=== PATIENT | male | born 1995 | race Caucasian/White ===

== ENCOUNTER 2018-12-13 13:59 | Day surgery (SDC) | payer OTHER ==
[2018-12-13] VITALS (11 sets, daily range): BP systolic 103–162; BP diastolic 56–116; PULSE 75–104; TEMP 98–99
[~2018-12-13] VITALS: Ht 180.3 cm; Wt 97.6 kg
[~2018-12-13 13:59] MED LIST: FLOMAX 0.40.4 MG/CAP PO; NO HOME MEDICATIONS; NORCO 325 MG-51 TAB PO; ZOFRAN 4MG T4 MG/TAB PO
[2018-12-13] MEDS ORDERED: NAPROSYN500 MG PO (14:52)
--- NOTE | 2018-12-13 15:39 | NUR ---
Patient arrived to the unit via EMS at 1400. At 1405, Dr. Valdez was called for orders. He stated to continue KUB and rocephin orders and to start a morphine INJECTION WAX MOLDER for patient. Orders for consent were also received. He stated he would have patient to OR around 1600. Vitals showed hypertension and temp of 99.0. INJECTION WAX MOLDER, zofran, and rocephin given. INJECTION WAX MOLDER bolus given at 1500 d/t inadequate pain management. Patient stated pain 9/10 to lower back before starting INJECTION WAX MOLDER, after starting INJECTION WAX MOLDER, and after the 1500 bolus. He stated the pain was not better and continued to vomit and be restless. Additional INJECTION WAX MOLDER bolus given at 1515. Patient then layed down on the bed and rested with eyes closed. Pain assessed again and patient stated 9/10 on numeric scale then was startled awake when this nurse asked medical history questions. Pre-op then came to get patient at 1540.
--- NOTE | 2018-12-13 19:14 | NUR ---
Patient back from surgery at 1650. Denies pain. States the need to void. 175ml of urine out and strained. Vitals WNL. Blood pressure appears to have come down. States some discomfort when voiding. Family at bedside. Educated on the importance of using call light when using the restroom. Post-op vitals set up. Bedside report given to HIRA Sousa. Patient denies needs at this time.
--- NOTE | 2018-12-13 21:00 | NUR ---
PT IN BED. AMBULATES TO TOILET. URINE BLOOD TINGED. PT FORGOT TO COLLECT URINE BUT HE DID STRAIN IT. NO STONES SEEN.
[2018-12-14 04:08] VITALS: BP 112/54; PULSE 66; TEMP 97.9
--- NOTE | 2018-12-14 04:40 | NUR ---
PT IN BED. PT DENIES PAIN. NO N/V. NO STONES FOUND FROM STRAINING URINE. URINE STILL A BIT BLOOD TINGED.
--- NOTE | 2018-12-14 07:20 | NUR ---
Patient alert and oriented, answers questions appropriately. See assessment. No urinary frequency or hesitancy. C/o urinary burning. Reviewed post stent placement education with patient. No other c/o at this time.
[2018-12-14 07:54] VITALS: BP 123/63; PULSE 62; TEMP 97.9
--- NOTE | 2018-12-14 09:40 | NUR ---
YAHIR student met with the patient to discuss discharge planning. The patient lives in [place]. He reports independence with ADLs and does not use any DME. The patient reports he receives primary care on [address] and he receives his meds from [facility]. He reports no difficulties obtaining his medication. The patient does not have Advanced Directives in EMR and is not interested in completing them at this time. The patient plans to return home upon discharge. No additional needs at this time.
--- NOTE | 2018-12-14 10:49 | NUR ---
Initial visit; Patient thanked Legal Stenographer for visit, offering God's blessings and keeping him in her prayers.
[2018-12-14 12:04] VITALS: BP 128/67; PULSE 76; TEMP 98.1
[2018-12-14 17:09] VITALS: BP 124/51; PULSE 74; TEMP 98.5
--- NOTE | 2018-12-14 19:30 | NUR ---
Received report from HIRA Luna. Patient is awaiting KUB before being discharged. Assessment completed. VSS. 1 Percocet given at this time for c/o left flank pain. Tolerating diet with no c/o nausea. Voiding with no difficulities. INT to right antecubital. Patient is up independently. Denies any concerns or needs at this time. Patient's parents will be here to pick patient up for discharge.
[2018-12-14 19:36] VITALS: BP 126/81; PULSE 66; TEMP 98.6
--- NOTE | 2018-12-14 20:15 | NUR ---
Patient given discharge instructions and verbalized an understanding. Medication scripts given and work excuse. INT removed from right antecubital. All belongings sent with patient. Patient escorted out with staff and family at 2014.
== END 2018-12-14 20:15 | disposition home or self-care (01) ==
LOC: SDCO 13:59 → SURG 13:59 → SDCO 12-14 20:15
DX: N20.1 Calculus of ureter (principal); R93.41 Abnormal radiologic findings on diagnostic imaging of renal pelvis, ureter, or bladder; Z87.442 Personal history of urinary calculi; R50.9 Fever, unspecified; Z79.899 Other long term (current) drug therapy
CPT/HCPCS: A4216; C1769; C2617; J0690; J0696; J1100; J1885; J2270; J2405; J2704; J3010; J7030; Q9967

== ENCOUNTER 2021-02-28 20:13 | Emergency (ER) | payer OTHER ==
[~2021-02-28] VITALS: Ht 180.3 cm; Wt 111.4 kg
[~2021-02-28 20:13] MED LIST changes: +NAPROSYN500 MG PO
[2021-02-28 20:20] VITALS: TEMP 98.5
[2021-02-28 20:53] LABS: BASO % 0.5 % (0.0-2.0); EOS # 0.1 (0.0-0.7); EOS % 0.9 % (0-4.0); GRAN # 6.6 (1.4-6.5); GRAN % 77.3 % (42.2-75.2); HEMATOCRIT 46.5 % (42.0-52.0); HEMOGLOBIN 16.1 g/dl (13.5-18.0); LYMPH # 1.3 (1.2-3.4); LYMPH % 15.5 % (20.0-51.0); MEAN CELL VOLUME 86 fl (80.0-100.0); MEAN CORPUSCULAR HEMOGLOBIN 30 pg (27.0-31.0); MEAN CORPUSCULAR HGB CONC 35 g/dl (33.0-37.0); MEAN PLATELET VOLUME 12.4 fl (7.4-10.4); MONO # 0.5 (0.1-0.6); MONO % 5.6 % (1.7-9.3); PLATELET COUNT 188 K/mm3 (130-400); RED BLOOD COUNT 5.38 M/mm3 (4.20-5.60); REDCELL DISTRIBUTION WIDTH-CV 12.4 % (11.5-14.5)
[2021-02-28 21:06] LABS: ALANINE AMINOTRANSFERASE 46 U/L (4-49); ALBUMIN 4.9 gm/dL (3.5-5.0); ALKALINE PHOSPHATASE 59 U/L (50-136); ANION GAP 11 mmol/L (7-16); AST,SGOT 36 U/L (15-37); BILIRUBIN,TOTAL 0.7 mg/dL (0.0-1.0); BLOOD UREA NITROGEN 17 mg/dL (9-20); CALCIUM 9.7 mg/dL (8.4-10.2); CARBON DIOXIDE 25 mmol/L (22-30); CHLORIDE 108 mmol/L (98-107); CREATININE, serum 1.07 (0.66-1.25); GLUCOSE 109 mg/dL (74-106); POTASSIUM 4.1 mmol/L (3.4-5.0); SODIUM 143 mmol/L (137-145); TOTAL PROTEIN 8.2 gm/dL (6.4-8.2)
[2021-02-28 21:09] LABS: C-REACTIVE PROTEIN < 0.5 mg/dL (0.0-0.9)
[2021-02-28 21:29] LABS: COLLECTION METHOD CLEAN CATCH
[2021-02-28 21:38] LABS: MUCOUS Present /lpf; PH 5 (5-8); SQUAMOUS EPITHELIAL 0-2 /hpf; URINE APPEARANCE Hazy; URINE BACTERIA None Seen /hpf; URINE BILIRUBIN Negative (NEGATIVE); URINE BLOOD 3+ (NEGATIVE); URINE CALCIUM OXALATE CRYSTAL Present /hpf; URINE COLOR Yellow; URINE GLUCOSE Negative (NEGATIVE); URINE KETONE Trace (NEGATIVE); URINE LEUKOCYTE ESTERASE Negative (NEGATIVE); URINE NITRATE Negative (NEGATIVE); URINE PROTEIN(semi-quant) 1+ (NEGATIVE); URINE RBC >50 /hpf; URINE UROBILINOGEN Negative (NEGATIVE)
[2021-02-28 22:40] VITALS: BP 130/80; PULSE 88
== END 2021-02-28 22:51 | disposition home or self-care (01) ==
LOC: COL.ER 20:13
PROVIDERS: Nurse Practitioner
DX: R10.31 Right lower quadrant pain (principal); R31.9 Hematuria, unspecified; R11.2 Nausea with vomiting, unspecified; Z87.442 Personal history of urinary calculi
CPT/HCPCS: J1170; J1885; J2405; J7030; Q9967

== ENCOUNTER 2021-06-23 19:16 | Emergency (ER) | payer OTHER ==
[~2021-06-23] VITALS: Ht 180.3 cm; Wt 106.8 kg
[2021-06-23 20:09] LABS: BASO % 0.6 % (0.0-2.0); EOS # 0.2 K/mm3 (0.0-0.7); EOS % 2.2 % (0-4.0); GRAN # 4.3 K/mm3 (1.4-6.5); GRAN % 64.6 % (42.2-75.2); HEMATOCRIT 43.7 % (42.0-52.0); HEMOGLOBIN 15.2 g/dl (13.5-18.0); LYMPH # 1.5 K/mm3 (1.2-3.4); LYMPH % 22.8 % (20.0-51.0); MEAN CELL VOLUME 86 fl (80.0-100.0); MEAN CORPUSCULAR HEMOGLOBIN 30 pg (27.0-31.0); MEAN CORPUSCULAR HGB CONC 35 g/dl (33.0-37.0); MEAN PLATELET VOLUME 12.6 fl (7.4-10.4); MONO # 0.7 K/mm3 (0.1-0.6); MONO % 9.7 % (1.7-9.3); PLATELET COUNT 194 K/mm3 (130-400); RED BLOOD COUNT 5.07 M/mm3 (4.20-5.60); REDCELL DISTRIBUTION WIDTH-CV 12.6 % (11.5-14.5)
[2021-06-23 20:27] LABS: ALBUMIN 4.3 gm/dL (3.5-5.0); BILIRUBIN,TOTAL 0.4 mg/dL (0.2-1.2); CALCIUM 9.7 mg/dL (8.4-10.2); CREATININE, serum 0.97 mg/dL (0.72-1.25); POTASSIUM 3.9 mmol/L (3.5-4.5); TOTAL PROTEIN 7.6 gm/dL (6.2-8.1)
[2021-06-23 20:48] LABS: INR 1.1 (0.8-3.0)
[2021-06-23 20:51] LABS: PARTIAL THROMBOPLASTIN TIME 31.6 SECONDS (26.0-37.0)
[2021-06-23 21:46] VITALS: BP 132/93; PULSE 107; TEMP 98.2
== END 2021-06-23 21:46 | disposition home or self-care (01) ==
LOC: COL.ER 19:16
PROVIDERS: Student in an Organized Health Care Education/Training Program
DX: S19.9XXA Unspecified injury of neck, initial encounter (principal); S20.219A Contusion of unspecified front wall of thorax, initial encounter; R31.9 Hematuria, unspecified; R10.9 Unspecified abdominal pain; Z87.442 Personal history of urinary calculi; V86.09XA Driver of other special all-terrain or other off-road motor vehicle injured in traffic accident, initial encounter
CPT/HCPCS: J2270; Q9967

== ENCOUNTER 2022-03-27 16:36 | Observation (INO) | payer OTHER ==
[~2022-03-27] VITALS: Ht 180.3 cm; Wt 108.0 kg
[2022-03-27 17:02] LABS: BASO # 0.1 K/mm3 (0.0-0.2); BASO % 0.8 % (0.0-2.0); EOS # 0.2 K/mm3 (0.0-0.7); EOS % 2.1 % (0.0-4.0); GRAN # 4.7 K/mm3 (1.4-6.5); GRAN % 59.5 % (42.2-75.2); HEMATOCRIT 48.1 % (42.0-52.0); HEMOGLOBIN 16.7 g/dl (13.5-18.0); LYMPH # 2.3 K/mm3 (1.2-3.4); LYMPH % 28.5 % (20.0-51.0); MEAN CELL VOLUME 86 fl (80.0-100.0); MEAN CORPUSCULAR HEMOGLOBIN 30 pg (27-31); MEAN CORPUSCULAR HGB CONC 35 g/dl (33.0-37.0); MEAN PLATELET VOLUME 12.2 fl (7.4-10.4); MONO # 0.7 K/mm3 (0.1-0.6); PLATELET COUNT 210 K/mm3 (130-400); RED BLOOD COUNT 5.57 M/mm3 (4.20-5.60); REDCELL DISTRIBUTION WIDTH-CV 12.2 % (11.5-14.5)
[2022-03-27 17:19] LABS: COLLECTION METHOD CLEAN CATCH
[2022-03-27 17:19] LABS: ALBUMIN 4.8 gm/dL (3.5-5.0); BILIRUBIN,TOTAL 0.6 mg/dL (0.2-1.2); CALCIUM 9.9 mg/dL (8.4-10.2); CREATININE, serum 1.25 mg/dL (0.72-1.25); POTASSIUM 4.2 mmol/L (3.5-4.5); TOTAL PROTEIN 8.1 gm/dL (6.2-8.1)
[2022-03-27 17:23] LABS: PH 5 (5-8); URINE APPEARANCE Cloudy (CLEAR/HAZY); URINE BILIRUBIN Negative (NEGATIVE); URINE BLOOD 3+ (NEGATIVE); URINE COLOR OTHER (YELLOW); URINE GLUCOSE Negative (NEGATIVE); URINE KETONE Negative (NEGATIVE); URINE LEUKOCYTE ESTERASE Negative (NEGATIVE); URINE NITRATE Negative (NEGATIVE); URINE PROTEIN(semi-quant) 2+ (NEGATIVE); URINE UROBILINOGEN Negative (NEGATIVE)
[2022-03-27 17:30] LABS: MUCOUS Present (NOT PRESENT); SQUAMOUS EPITHELIAL 0-2 /hpf (0-10); URINE RBC >50 /hpf (0-2)
[2022-03-27 19:50] VITALS: BP 130/82; PULSE 89; TEMP 98.5
[2022-03-27 22:00] VITALS: BP 140/84; PULSE 78; TEMP 98
[2022-03-27 22:15] VITALS: BP 132/79; PULSE 77; TEMP 98
[2022-03-27 22:30] VITALS: BP 128/77; PULSE 62; TEMP 98.8
[2022-03-27 22:45] VITALS: BP 141/82; PULSE 51; TEMP 98.8
[2022-03-27 23:15] VITALS: BP 138/91; PULSE 51; TEMP 98.8
--- NOTE | 2022-03-28 00:27 | NUR ---
PATIENT UP TO ROOM 350 POSTOP. ALERT AND ORIENTED BUT DROWSY. AMBULATED STANDBY ASSIST TO BATHROOM AND VOIDED 100 OF BLOODY URINE. VSS. TOLERATED ORAL FLUIDS. ASSISTED TO BATHROOM AGAIN SEVERAL TIMES AGAIN AND CONTINUES TO VOID WITHOUT ISSUE. C/O MODERATE CRAMPING SPASMS AND BURNING WHILE URINATING. LEVSIN, FLOMAX, AND PERCOCET GIVEN. TOLERATED PO FOOD. IV TO R AC DISCONTINUED, CATHETER INTACT. PATIENT DISCHARGE INSTRUCTIONS REVIEWED AND PAPERWORK COMPLETED. DISCHARGED TO HOME WITH FAMILY VIA WHEELCHAIR AT 2340.
== END 2022-03-27 23:40 | disposition home or self-care (01) ==
LOC: COL.ER 16:36 → SURG 17:42
PROVIDERS: Emergency Medicine; ADMIT Urology
DX: N20.1 Calculus of ureter (principal)
CPT/HCPCS: C1769; C2617; G0378; J1100; J1885; J2250; J2405; J2704; J3010; J7030; J7120

== ENCOUNTER 2022-03-28 01:27 | Day surgery (SDC) | payer OTHER ==
[~2022-03-28] VITALS: Ht 180.3 cm; Wt 107.0 kg
[2022-03-28 01:51] LABS: BASO % 0.4 % (0.0-2.0); GRAN # 9.7 K/mm3 (1.4-6.5); GRAN % 89.9 % (42.2-75.2); HEMATOCRIT 46.9 % (42.0-52.0); HEMOGLOBIN 16.1 g/dl (13.5-18.0); LYMPH % 8.9 % (20.0-51.0); MEAN CELL VOLUME 88 fl (80.0-100.0); MEAN CORPUSCULAR HEMOGLOBIN 30 pg (27-31); MEAN CORPUSCULAR HGB CONC 34 g/dl (33.0-37.0); MEAN PLATELET VOLUME 12.3 fl (7.4-10.4); MONO # 0.1 K/mm3 (0.1-0.6); MONO % 0.6 % (1.7-9.3); PLATELET COUNT 207 K/mm3 (130-400); RED BLOOD COUNT 5.33 M/mm3 (4.20-5.60); REDCELL DISTRIBUTION WIDTH-CV 12.3 % (11.5-14.5)
[2022-03-28 02:04] LABS: ALBUMIN 4.7 gm/dL (3.5-5.0); BILIRUBIN,TOTAL 0.6 mg/dL (0.2-1.2); C-REACTIVE PROTEIN 0.55 mg/dL (0.00-0.50); CALCIUM 9.5 mg/dL (8.4-10.2); CREATININE, serum 1.34 mg/dL (0.72-1.25); POTASSIUM 4.2 mmol/L (3.5-4.5); TOTAL PROTEIN 7.9 gm/dL (6.2-8.1)
--- NOTE | 2022-03-28 03:27 | NUR ---
PATIENT UP TO ROOM 343, ALERT AND ORIENTED. AMBULATES TO BED WITHOUT ISSUE. C/O MODERATE FLANK PAIN, PRN DILAUDID GIVEN. C/O NAUSEA AND PATIENT IS DRY HEAVING AT SIDE OF BED, PRN ZOFRAN GIVEN. DISCUSSED NEED FOR UA, PATIENT AGREEABLE. IVF TO Shantelle GRIFFIN.
[2022-03-28 04:45] VITALS: BP 133/89; PULSE 98; TEMP 98.7
[2022-03-28 05:09] LABS: COLLECTION METHOD CLEAN CATCH
[2022-03-28 05:28] LABS: PH 7 (5-8); SQUAMOUS EPITHELIAL None Seen /hpf (0-10); URINE APPEARANCE Cloudy (CLEAR/HAZY); URINE BACTERIA None Seen /hpf (NONE SEEN); URINE BLOOD 2+ (NEGATIVE); URINE COLOR Red (YELLOW); URINE GLUCOSE Negative (NEGATIVE); URINE KETONE 1+ (NEGATIVE); URINE NITRATE Negative (NEGATIVE); URINE PROTEIN(semi-quant) 2+ (NEGATIVE); URINE RBC >50 /hpf (0-2); URINE UROBILINOGEN Negative (NEGATIVE)
[2022-03-28 07:19] VITALS: BP 126/74; PULSE 113; TEMP 98.1
[2022-03-28 11:27] VITALS: BP 154/97; TEMP 98.6
--- NOTE | 2022-03-28 14:16 | NUR ---
Soha: No taoist preference Situation: Pre Sales Systems Engineer went to room on rounds Background: PT was resting Assessment: No needs right now. PT appreciated the visit Recommendation: Pre Sales Systems Engineer will follow up as needed
[2022-03-28 15:23] VITALS: BP 133/78; PULSE 99; TEMP 98.5
[2022-03-28 20:04] VITALS: BP 146/92; PULSE 98; TEMP 99.4
--- NOTE | 2022-03-28 21:26 | NUR ---
ASSESSMENT COMPLETE. PT SITTING UP ON SIDE OF BED. A&O. COMPLAINING OF PAIN 8/10 TO BACK. SEE EMAR FOR MEDICATION ADMINISTRATION. CALL LIGHT IN REACH. NO FURHTER NEEDS AT THIS TIME.
[2022-03-28 23:51] VITALS: BP 131/85; PULSE 106; TEMP 98.8
[2022-03-29] VITALS (8 sets, daily range): BP systolic 113–144; BP diastolic 61–88; PULSE 84–102; TEMP 98–993.2
--- NOTE | 2022-03-29 10:09 | NUR ---
PT RESTING IN BED, PT CONTINUES TO TO HAVE NAUSEA AND VOMITING. IV TO LFA. PT TO HAVE STENT PLACED LATER THIS AM.
--- NOTE | 2022-03-29 10:35 | NUR ---
PT TO SURGERY AT THIS TIME WITH SOPHIA. CONSENT SIGNED ON CHART.
--- NOTE | 2022-03-29 12:41 | NUR ---
PT TO ROOM 343 PER BED WITH REPORT FROM AARBELLA INIGUEZ PACU AND TRANSPORTED BY EVAN INIGUEZ @1200. VSS, PT TO BR VOIDED AND RETURNED TO BEDSIDE. PT DENIES PAIN OR NAUSEA AT THIS TIME. PT ORDERING LUNCH.
[2022-03-29] MEDS ORDERED: NORCO 325 MG-51 TAB PO (14:05)
[2022-03-29] MEDS ORDERED: ZOFRAN 4MG T4 MG/TAB PO (14:05)
--- NOTE | 2022-03-29 14:41 | NUR ---
Marine Firer met with patient to discuss discharge planning. Patient's father, Catarino is at bedside. Patient will discharge home this afternoon. Patient lives in [place] and goes to the [facility] for primary care and medications. Patient does not use any DME and is independent with ADLS. Patient does not have Advance Directives. Discharge Plan: Home
--- NOTE | 2022-03-29 14:53 | NUR ---
DISCHARGE INSTRUCTIONS REVIEWED WITH PT AND FAMILY. QUESTIONS ANSWERED. PT LEFT UNIT AMBULATORY.
== END 2022-03-29 14:54 | disposition home or self-care (01) ==
LOC: COL.ER 01:27 → SURG 02:27 → SDCO 02:27 → SURG 02:27 → COL.ER 02:27 → SURG 02:28 → SDCO 03-29 14:54 → SURG 03-29 14:54
PROVIDERS: Nurse Practitioner
DX: T81.89XA Other complications of procedures, not elsewhere classified, initial encounter (principal); R11.2 Nausea with vomiting, unspecified; G89.18 Other acute postprocedural pain; N13.1 Hydronephrosis with ureteral stricture, not elsewhere classified; E66.9 Obesity, unspecified
CPT/HCPCS: OP; C1769; C2617; G0378; J0690; J1100; J1170; J1885; J2405; J2704; J3010; J7030; Q9967